=== PATIENT | male | born 1975 ===

== ENCOUNTER 2018-09-14 17:09 | Emergency (ER) | payer SELFPAY ==
[2018-09-14] MEDS ORDERED: METHOCARBAMOL 500 MG TAB ONE (17:52)
[2018-09-14 19:07] LABS: Absolute Lymphocytes (CBC) 1.5 K/uL (0.7-4.9); Basophils % 0.4 % (0-1.3); Hematocrit 46.5 % (39.6-49.0); Lymphocytes % 20.8 % (15.3-44.8); MPV 8.9 fL (7.6-11.3); RBC Red Blood Cell Count 5.14 M/uL (4.33-5.43)
[2018-09-14 19:10] LABS: Protime INR 1.02
[2018-09-14 19:25] LABS: ALT/SGPT 33 U/L (12-78); AST/SGOT 19 U/L (15-37); Albumin 4.3 g/dL (3.4-5.0); Alkaline Phosphatase 91 U/L (45-117); BUN Blood Urea Nitrogen 9 mg/dL (7-18); Bicarbonate 31 mmol/L (21-32); Bilirubin Direct 0.1 mg/dL (0-0.2); Bilirubin Total 0.3 mg/dL (0.2-1.0); Glucose Level 93 mg/dL (74-106); Magnesium 2.1 mg/dL (1.8-2.4); NT PRO-BNP < 5 pg/mL (<125); Protein, Total 7.4 g/dL (6.4-8.2); Sodium Level 142 mmol/L (136-145); Troponin (Emerg Dept Use Only) < 0.02 ng/mL (0.0-0.045)
--- NOTE | 2018-09-14 20:01 | RAD REPORT ---
EXAM DESCRIPTION: RAD - Chest Single View - 09/14/2018 7:19 pm CLINICAL HISTORY: left arm pain Chest pain. COMPARISON: No comparisons FINDINGS: Portable technique limits examination quality. The lungs are grossly clear. The heart is normal in size. No displaced fractures. IMPRESSION: No acute intrathoracic process suspected.
--- NOTE | 2018-09-14 21:18 | ER ---
Nurse's Notes [facility] Name: Isiah Marie Age: 42 yrs Sex: Male : 1975 Arrival Date: 09/14/2018 Time: 17:08 Bed 7 Private MD: None, None Diagnosis: Pain in left upper arm Presentation: 09/14 17:17 Presenting complaint: Patient states: I WAS IN MY TRUCK TALKING TO THE PHONE. SUDDENLY rv THERE WAS A SHARP PAIN IN MY LEFT ARM. IT ALMOST FELT LIKE MY WHOLE LEFT ARM WAS WEAK. I HAVE PROBLEMS WITH MY BACK BUT THIS ONE IS REALLY SHARP. Transition of care: patient was not received from another setting of care. Onset of symptoms was September 14, 2018 at 15:45. Risk Assessment: Do you want to hurt yourself or someone else? Patient reports no desire to harm self or others. Initial Sepsis Screen: Does the patient meet any 2 criteria? No. Patient's initial sepsis screen is negative. Does the patient have a suspected source of infection? No. Patient's initial sepsis screen is negative. Care prior to arrival: None. 17:17 Method Of Arrival: Ambulatory rv 17:17 Acuity: FIDELIA 4 rv Historical: - Allergies: 17:22 PENICILLINS; rv - Home Meds: 17:22 None [Active]; rv - PMHx: 17:22 None; rv - PSHx: 17:22 Tonsillectomy; rv - Immunization history:: Adult Immunizations up to date, Last tetanus immunization: up to date. - Social history:: Smoking status: Patient/guardian denies using tobacco, never smoked. - Ebola Screening: : No symptoms or risks identified at this time. Screenin:24 Abuse screen: Denies threats or abuse. Denies injuries from another. Nutritional rv screening: No deficits noted. Tuberculosis screening: No symptoms or risk factors identified. Fall Risk None identified. Assessment: 17:23 General: Appears in no apparent distress. comfortable, Behavior is calm, cooperative. rv Pain: Denies pain. Neuro: Level of Consciousness is awake, alert, obeys commands, Oriented to person, place, time, situation. Cardiovascular: Patient's skin is warm and dry. Respiratory: Airway is patent. GI: No signs and/or symptoms were reported involving the gastrointestinal system. : No signs and/or symptoms were reported regarding the genitourinary system. EENT: No signs and/or symptoms were reported regarding the EENT system. Derm: Skin is intact. Musculoskeletal: Range of motion: intact in all extremities, Swelling absent Reports weakness in left arm pain in left arm. 18:14 Reassessment: Patient appears in no apparent distress at this time. Patient and/or rv family updated on plan of care and expected duration. Pain level reassessed. Patient is alert, oriented x 3, equal unlabored respirations, skin warm/dry/pink. Patient denies pain at this time. 19:15 Reassessment: Patient appears in no apparent distress at this time. Patient and/or rv family updated on plan of care and expected duration. Pain level reassessed. Patient is alert, oriented x 3, equal unlabored respirations, skin warm/dry/pink. DR MONTEJO TALKED TO THE PATIENT AND DECIDED TO GO WITH THE DIAGNOSTICS. 20:47 Reassessment: PATIENT'S BLOOD AND RADIOLOGY REPORTS CAME BACK, DR MONTEJO TALKED TO THE rv PATIENT. REPEAT TROPONIN DONE, AWAITING RESULT. Vital Signs: 17:19 BP 137 / 98; Pulse 85; Resp 16; Pulse Ox 98% on R/A; rv 17:22 Temp 98(O); Weight 86.18 kg; Height 6 ft. 0 in. (182.88 cm); Pain 0/10; rv 18:00 BP 114 / 70; Pulse 91; Resp 16; Pulse Ox 98% on R/A; rv 19:00 BP 115 / 88; Pulse 83; Resp 16; Pulse Ox 99% on R/A; rv 19:30 BP 125 / 79; Pulse 89; Resp 15; Pulse Ox 99% ; rv 20:00 BP 119 / 88; Pulse 81; Resp 15; Pulse Ox 98% on R/A; rv 20:30 BP 121 / 95; Pulse 86; Resp 17; Temp 98; Pulse Ox 99% on R/A; rv 21:29 BP 120 / 84; Pulse 84; Resp 15; Temp 98; Pulse Ox 98% on R/A; rv 17:22 Body Mass Index 25.77 (86.18 kg, 182.88 cm) rv NIH Stroke Scale Scores: 17:28 NIHSS Score: 0 snw ED Course: 17:08 Patient arrived in ED. dl4 17:08 None, None is Private Physician. dl4 17:09 Tegan Madison FNP-C [facility]. snw 17:09 Connor Del Rio MD is Attending Physician. snw 17:17 Derrek Scruggs, BERNABE is Primary Nurse. rv 17:17 Espinoza Montejo MD is Attending Physician. kdr 17:19 Triage completed. rv 17:24 Patient has correct armband on for positive identification. Bed in low position. Call rv light in reach. Side rails up X 1. Pulse ox on. NIBP on. 17:24 Patient placed in the treatment room, on a stretcher, on oxygen, Patient notified of rv wait time. 19:00 Initial lab(s) drawn, by me, sent to lab. Inserted saline lock: 20 gauge in right sg antecubital area, using aseptic technique. Blood collected. 19:13 EKG done, by ED staff, reviewed by Espinoza Montejo MD. rv 19:24 XRAY Chest (1 view) In Process Unspecified. EDMS 20:47 No provider procedures requiring assistance completed. rv 21:30 IV discontinued, intact, bleeding controlled, No redness/swelling at site. Pressure rv dressing applied. Administered Medications: 17:33 Drug: Robaxin 750 mg Route: PO; rv 18:13 Follow up: Response: No adverse reaction rv Outcome: 21:17 Discharge ordered by . kdr 21:30 Discharged to home ambulatory. rv 21:30 Condition: good 21:30 Discharge instructions given to patient, Instructed on discharge instructions, follow up and referral plans. Demonstrated understanding of instructions, follow-up care. 21:30 Patient left the ED. rv NIH Stroke Scale - NIH Stroke Score Date: 09/14/2018 Time: 17:28 Total Score = 0 1a. Level of Consciousness (LOC) - 0(Alert) 1b. Level of Consciousness (LOC) (Year \T\ Age) - 0(Both) 1c. LOC Commands (Open \T\ Closes Eyes/Striper Spray Gun) - 0(Both) 2. Best Gaze (Lateral Gaze Paresis) - 0(Normal) 3. Visual Field Loss - 0(No visual loss) 4. Facial Palsy - 0(Normal) 5a. Left Arm: Motor (10-second hold) - 0(No drift) 5b. Right Arm: Motor (10-second hold) - 0(No drift) 6a. Left Leg: Motor (5-second hold - always test supine) - 0(No drift) 6b. Right Leg: Motor (5-second hold - always test supine) - 0(No drift) 7. Limb Ataxia (finger/nose \T\ heel/etienne - test with eyes open) - 0(Absent) 8. Sensory Loss (pinprick arms/legs/face) - 0(Normal) 9. Best Language: Aphasia (description/naming/reading) - 0(No aphasia) 10. Dysarthria (speech clarity - read or repeat words) - 0(Normal) 11. Extinction and Inattention (visual/tactile/auditory/spatial/personal) - 0(No abnormality) Initials: snw Signatures: Dispatcher [employer] Vahid Das, BERNABE RN Espinoza Watson MD MD [facility] Tegan Madison, DISTRICT OR DISTRICT OFFICE DIRECTOR-C DISTRICT OR DISTRICT OFFICE DIRECTOR-Csnw Derrek Scruggs RN RN rv Luna, David dl4
--- NOTE | 2018-09-14 21:19 | EDPHYS ---
Physician Documentation [facility] Name: Isiah Marie Age: 42 yrs Sex: Male : 1975 Arrival Date: 09/14/2018 Time: 17:08 Bed 7 Private MD: None, None ED Physician Espinoza Pratt HPI: 09/14 17:28 This 42 yrs old Male presents to ER via Ambulatory with complaints of Arm Pain. snw 17:28 The patient or guardian complains of pain, that is acute, spasm. The complaints affect snw the left tricep. Context: The problem was sustained at work, at a in his vehicle, resulted from unknown. Onset: The symptoms/episode began/occurred suddenly, just prior to arrival, and improved. Treatment prior to arrival includes: no previous treatment. Modifying factors: The symptoms are alleviated by time. Associated signs and symptoms: The patient has no apparent associated signs or symptoms. Severity of symptoms: At their worst the symptoms were moderate. The patient has experienced a previous episode, approximately 5 years ago. It is unknown whether or not the patient has recently seen a physician. pt states he has had problems with his left neck and posterior shoulder in the past. Historical: - Allergies: 17:22 PENICILLINS; rv - Home Meds: 17:22 None [Active]; rv - PMHx: 17:22 None; rv - PSHx: 17:22 Tonsillectomy; rv - Immunization history:: Adult Immunizations up to date, Last tetanus immunization: up to date. - Social history:: Smoking status: Patient/guardian denies using tobacco, never smoked. - Ebola Screening: : No symptoms or risks identified at this time. ROS: 17:28 Constitutional: Negative for fever, chills, and weight loss, Eyes: Negative for injury, snw pain, redness, and discharge, ENT: Negative for injury, pain, and discharge, Neck: Negative for injury, pain, and swelling, Cardiovascular: Negative for chest pain, palpitations, and edema, Respiratory: Negative for shortness of breath, cough, wheezing, and pleuritic chest pain, Abdomen/GI: Negative for abdominal pain, nausea, vomiting, diarrhea, and constipation, Back: Negative for injury and pain, : Negative for injury, bleeding, discharge, and swelling, Skin: Negative for injury, rash, and discoloration, Neuro: Negative for headache, weakness, numbness, tingling, and seizure. 17:28 MS/extremity: Positive for sharp pain to tricep area of left arm followed by heaviness to left arm. Exam: 17:28 Head/Face: Normocephalic, atraumatic. Eyes: Pupils equal round and reactive to light, snw extra-ocular motions intact. Lids and lashes normal. Conjunctiva and sclera are non-icteric and not injected. Cornea within normal limits. Periorbital areas with no swelling, redness, or edema. ENT: Nares patent. No nasal discharge, no septal abnormalities noted. Tympanic membranes are normal and external auditory canals are clear. Oropharynx with no redness, swelling, or masses, exudates, or evidence of obstruction, uvula midline. Mucous membranes moist. Neck: Trachea midline, no thyromegaly or masses palpated, and no cervical lymphadenopathy. Supple, full range of motion without nuchal rigidity, or vertebral point tenderness. No Meningismus. negative for bruit bilaterally Chest/axilla: Normal chest wall appearance and motion. Nontender with no deformity. No lesions are appreciated. Cardiovascular: Regular rate and rhythm with a normal S1 and S2. No gallops, murmurs, or rubs. Normal PMI, no JVD. No pulse deficits. Respiratory: Lungs have equal breath sounds bilaterally, clear to auscultation and percussion. No rales, rhonchi or wheezes noted. No increased work of breathing, no retractions or nasal flaring. Abdomen/GI: Soft, non-tender, with normal bowel sounds. No distension or tympany. No guarding or rebound. No evidence of tenderness throughout. Back: No spinal tenderness. No costovertebral tenderness. Full range of motion. Skin: Warm, dry with normal turgor. Normal color with no rashes, no lesions, and no evidence of cellulitis. MS/ Extremity: Pulses equal, no cyanosis. Neurovascular intact. Full, normal range of motion. Neuro: Awake and alert, GCS 15, oriented to person, place, time, and situation. Cranial nerves II-XII grossly intact. Motor strength 5/5 in all extremities. Sensory grossly intact. Cerebellar exam normal. Normal gait. 17:28 Constitutional: The patient appears alert, awake, anxious. 17:28 Psych: Behavior/mood is anxious, Affect is anxious. Oriented to person, place, time. Vital Signs: 17:19 BP 137 / 98; Pulse 85; Resp 16; Pulse Ox 98% on R/A; rv 17:22 Temp 98(O); Weight 86.18 kg; Height 6 ft. 0 in. (182.88 cm); Pain 0/10; rv 18:00 BP 114 / 70; Pulse 91; Resp 16; Pulse Ox 98% on R/A; rv 19:00 BP 115 / 88; Pulse 83; Resp 16; Pulse Ox 99% on R/A; rv 19:30 BP 125 / 79; Pulse 89; Resp 15; Pulse Ox 99% ; rv 20:00 BP 119 / 88; Pulse 81; Resp 15; Pulse Ox 98% on R/A; rv 20:30 BP 121 / 95; Pulse 86; Resp 17; Temp 98; Pulse Ox 99% on R/A; rv 21:29 BP 120 / 84; Pulse 84; Resp 15; Temp 98; Pulse Ox 98% on R/A; rv 17:22 Body Mass Index 25.77 (86.18 kg, 182.88 cm) rv NIH Stroke Scale Scores: 17:28 NIHSS Score: 0 snw MDM: 17:09 Patient medically screened. snw 17:34 Transition of care: After a detail discussion of the patient's case, care is snw transferred to Espinoza Pratt MD. 18:21 Counseling: I had a detailed discussion with the patient and/or guardian regarding: snw discussed CT head/C spine to offer reassurance and evaluate for bony changes of c/spine, pt declines CT. Offered carotid doppler of neck, as no bruits noted patient unsure if he wants to have that. Denies chest pain, radiation of pain to neck, no diaphoresis, no nausea/vomiting. Pt offered muscle relaxer and care turned over to Dr. Pratt.. 21:26 Data reviewed: vital signs, nurses notes, lab test result(s), radiologic studies. kdr 09/14 18:45 Order name: Basic Metabolic Panel; Complete Time: 20:16 kdr 09/14 18:45 Order name: CBC with Diff; Complete Time: 20:16 kdr 09/14 18:45 Order name: LFT's; Complete Time: 20:16 kdr 09/14 18:45 Order name: Magnesium; Complete Time: 20:16 [facility] 09/14 18:45 Order name: NT PRO-BNP; Complete Time: 20:16 [facility] 09/14 18:45 Order name: PT-INR; Complete Time: 20:16 [facility] 09/14 18:45 Order name: Troponin (emerg Dept Use Only); Complete Time: 20:16 [facility] 09/14 18:45 Order name: XRAY Chest (1 view); Complete Time: 20:16 [facility] 09/14 18:45 Order name: EKG; Complete Time: 18:46 [facility] 09/14 18:45 Order name: Cardiac monitoring; Complete Time: 19:15 [facility] 09/14 18:45 Order name: EKG - Nurse/Tech; Complete Time: 19:15 [facility] 09/14 18:45 Order name: IV Saline Lock; Complete Time: 19:15 [facility] 09/14 20:16 Order name: Troponin (emerg Dept Use Only) [facility] 09/14 18:45 Order name: Labs collected and sent; Complete Time: 19:15 [facility] 09/14 18:45 Order name: O2 Per Protocol; Complete Time: 19:15 [facility] 09/14 18:45 Order name: O2 Sat Monitoring; Complete Time: 19:15 kdr Administered Medications: 17:33 Drug: Robaxin 750 mg Route: PO; rv 18:13 Follow up: Response: No adverse reaction rv Disposition: 21:16 Co-signature as Attending Physician, Espinoza Pratt MD I agree with the assessment and kdr plan of care. Disposition: 09/14/18 21:17 Discharged to Home. Impression: Pain in left upper arm. - Condition is Stable. - Discharge Instructions: Musculoskeletal Pain, Pain Without a Known Cause. - Medication Reconciliation Form, Thank You Letter form. - Follow up: Private Physician; When: 2 - 3 days; Reason: If symptoms return, Further diagnostic work-up, Recheck today's complaints, Continuance of care, Re-evaluation by your physician. - Problem is new. - Symptoms have improved. NIH Stroke Scale - NIH Stroke Score Date: 09/14/2018 Time: 17:28 Total Score = 0 1a. Level of Consciousness (LOC) - 0(Alert) 1b. Level of Consciousness (LOC) (Year \T\ Age) - 0(Both) 1c. LOC Commands (Open \T\ Closes Eyes/Silk Spooler) - 0(Both) 2. Best Gaze (Lateral Gaze Paresis) - 0(Normal) 3. Visual Field Loss - 0(No visual loss) 4. Facial Palsy - 0(Normal) 5a. Left Arm: Motor (10-second hold) - 0(No drift) 5b. Right Arm: Motor (10-second hold) - 0(No drift) 6a. Left Leg: Motor (5-second hold - always test supine) - 0(No drift) 6b. Right Leg: Motor (5-second hold - always test supine) - 0(No drift) 7. Limb Ataxia (finger/nose \T\ heel/etienne - test with eyes open) - 0(Absent) 8. Sensory Loss (pinprick arms/legs/face) - 0(Normal) 9. Best Language: Aphasia (description/naming/reading) - 0(No aphasia) 10. Dysarthria (speech clarity - read or repeat words) - 0(Normal) 11. Extinction and Inattention (visual/tactile/auditory/spatial/personal) - 0(No abnormality) Initials: snw Signatures: Dispatcher [employer] EDMS Espinoza Pratt MD MD kdr Tegan Madison, QUITLINE COUNSELOR-C QUITLINE COUNSELOR-Csnw Derrek Scruggs, BERNABE RN rv Corrections: (The following items were deleted from the chart) 21:30 21:17 09/14/2018 21:17 Discharged to Home. Impression: Pain in left upper arm. rv Condition is Stable. Forms are Medication Reconciliation Form, Thank You Letter, Antibiotic Education, Prescription Opioid Use. Follow up: Private Physician; When: 2 - 3 days; Reason: If symptoms return, Further diagnostic work-up, Recheck today's complaints, Continuance of care, Re-evaluation by your physician. Problem is new. Symptoms have improved. kdr
--- NOTE | 2018-09-15 10:48 | EKG ---
Test Date: 2018-09-14 Test Time: 19:12:29 Power Plant Assistant: RV MEASUREMENT RESULTS: Intervals: Rate: 87 WY: 150 QRSD: 94 QT: 356 QTc: 428 [place]: P: 54 WY: 150 QRS: 50 T: 23 INTERPRETIVE STATEMENTS: Normal sinus rhythm Normal ECG No previous ECG available for comparison Electronically Signed On 09-15-18 10:47:43 CDT by Jair Khoury
== END 2018-09-14 21:30 | disposition home or self-care (01) ==
LOC: ER 17:09
DX: M79.622 Pain in left upper arm (principal); Z88.0 Allergy status to penicillin
CPT/HCPCS: 36415; 71045; 80048; 80076; 83735; 83880; 84484; 85025; 85610; 93005; 99285